=== PATIENT | female | born 1985 | race Caucasian/White ===

== ENCOUNTER 2024-02-24 22:31 | Inpatient (IN) | payer MEDICAID, OTHER ==
[~2024-02-24] VITALS: Ht 165.1 cm; Wt 68.0 kg
[2024-02-24 23:35] LABS: HEMOGLOBIN. 12.8 g/dL (12.0-16.0); MEAN CORPUSCULAR HEMOGLOBIN 33.6 pg (28.0-32.0); MEAN CORPUSCULAR HGB CONC 33.7 g/dL (31.0-37.0); MEAN CORPUSCULAR VOLUME 99.6 fL (81.0-99.0); MEAN PLATELET VOLUME 8.4 fl (7.4-10.4); PLATELET 66 x1000/uL (130-400); RED BLOOD CELL COUNT 3.82 mill/uL (4.2-5.4); RED CELL DISTRIBUTION WIDTH 17.2 % (11.6-14.6); WHITE BLOOD COUNT 5.4 x1000/uL (4.5-11.0)
[2024-02-24 23:37] LABS: CHLORIDE 102 mEq/L (98-107); POTASSIUM 3.5 mEq/L (3.5-5.1); SODIUM 138 mEq/L (136-145)
[2024-02-24 23:38] LABS: CARBON DIOXIDE 20 mEq/L (21-32)
[2024-02-24 23:39] LABS: CALCIUM 9.5 mg/dL (8.7-10.4)
[2024-02-24 23:43] LABS: CREATININE 0.7 mg/dL (0.6-1.0); GLUCOSE 146 mg/dL (70-105)
[2024-02-24 23:44] LABS: ETHANOL BLOOD 76 mg/dL (<10); UREA NITROGEN BLOOD 12 mg/dL (9-23)
[2024-02-24 23:45] LABS: ACETAMINOPHEN < 2 ug/mL (10-30); AMMONIA 62 uMol/L (<32)
[2024-02-24 23:47] LABS: HCG SCREEN NEGATIVE
[2024-02-25 00:06] LABS: DIFFERENTIAL COMMENT 1
[2024-02-25] MEDS: LEVETIRACETAM 1000MG PREMIX 100 ML IV ONE (00:20)
[2024-02-25] MEDS: LORAZEPAM 2MG/ML INJ IV ONE (00:21)
[2024-02-25] MEDS: FOLIC ACID 1 MG, THIAMINE HCL 100 MG, MVI, ADULT NO.1 10 ML in DEXTROSE 5% WATER 1,000 ML IV ONE (02:01)
[2024-02-25] MEDS ORDERED: ACETAMINOPHEN 325MG TABLET PO PRN (03:00)
[2024-02-25] MEDS ORDERED: MAGNESIUM/ALUMINUM HYDROXIDE/SIMETHICONE 30ML UDC PO PRN (03:00)
[2024-02-25] MEDS ORDERED: CLONIDINE 0.1MG TABLET PO PRN (03:00)
[2024-02-25] MEDS ORDERED: GUAIFENESIN 200MG/10ML SUGAR FREE UDC PO PRN (03:00)
[2024-02-25] MEDS ORDERED: IPRATROPIUM/ALBUTEROL 0.5-3(2.5)MG/3ML NEB HHN PRN (03:00)
[2024-02-25] MEDS ORDERED: ONDANSETRON HCL 4MG/2ML INJ IV PRN (03:00)
[2024-02-25] MEDS ORDERED: DOCUSATE SODIUM 100MG CAPSULE PO PRN (03:00)
[2024-02-25 05:42] LABS: PLATELET ESTIMATE DECREASED
[2024-02-25] MEDS: ACETAMINOPHEN 325MG TABLET PO PRN (05:42)
[2024-02-25 10:46] LABS: AMMONIA 72 uMol/L (<32)
[2024-02-25 11:18] LABS: CARBON DIOXIDE 25 mEq/L (21-32); CHLORIDE 101 mEq/L (98-107); POTASSIUM 3.1 mEq/L (3.5-5.1); SODIUM 133 mEq/L (136-145)
[2024-02-25 11:19] LABS: CALCIUM 8.6 mg/dL (8.7-10.4)
[2024-02-25 11:23] LABS: CREATININE 0.6 mg/dL (0.6-1.0)
[2024-02-25 11:24] LABS: GLUCOSE 75 mg/dL (70-105); UREA NITROGEN BLOOD 10 mg/dL (9-23)
[2024-02-25 11:26] LABS: ALANINE AMINOTRANSFERASE 60 IU/L (10-49); ALBUMIN 3.9 g/dL (3.2-4.8); ASPARTATE AMINOTRANSFERASE 175 IU/L (<34); BILIRUBIN TOTAL 5.5 mg/dL (0.1-1.0); PROTEIN TOTAL 7.4 g/dL (6.0-8.3)
[2024-02-25] MEDS ORDERED: LACTULOSE 20G/30ML UDC PO NR (13:45)
[2024-02-25] MEDS ORDERED: LACTULOSE 20G/30ML UDC PO SCH (14:00)
[2024-02-25] MEDS: LACTULOSE 20G/30ML UDC PO SCH (15:00)
[2024-02-25] MEDS: CHLORDIAZEPOXIDE 25MG CAPSULE PO SCH (15:01)
[2024-02-25] MEDS ORDERED: FOLIC ACID 1 MG, THIAMINE HCL 100 MG, MVI, ADULT NO.1 10 ML in DEXTROSE 5% WATER 1,000 ML IV ONE (16:00)
[2024-02-25 18:44] LABS: ALBUMIN 3.9 g/dL (3.2-4.8)
[2024-02-25 21:30] VITALS: BP 107/69; PULSE 92; RESP 20; TEMP 36.33624; TEMP 36.3624; O2SAT 96
[2024-02-26] VITALS: BP 120/85; PULSE 77; RESP 20; TEMP 37.2252; O2SAT 97
[2024-02-26 04:00] VITALS: BP 117/80; PULSE 84; RESP 20; TEMP 36.05844; O2SAT 98
[2024-02-26 06:23] LABS: CARBON DIOXIDE 23 mEq/L (21-32); CHLORIDE 102 mEq/L (98-107); POTASSIUM 3.2 mEq/L (3.5-5.1); SODIUM 134 mEq/L (136-145)
[2024-02-26 06:24] LABS: CALCIUM 9.1 mg/dL (8.7-10.4)
[2024-02-26 06:26] LABS: TRIGLYCERIDE 106 mg/dL (0-150)
[2024-02-26 06:29] LABS: CREATININE 0.6 mg/dL (0.6-1.0); GLUCOSE 96 mg/dL (70-105); T4 FREE 1.45 ng/dL (0.89-1.76); THYROID STIMULATING HORMONE 1.43 uIU/mL (0.55-4.78); UREA NITROGEN BLOOD 9 mg/dL (9-23)
[2024-02-26 06:30] LABS: ALBUMIN 3.9 g/dL (3.2-4.8); LDL CHOLESTEROL 88 mg/dL (5-100)
[2024-02-26 06:31] LABS: ALANINE AMINOTRANSFERASE 63 IU/L (10-49); ASPARTATE AMINOTRANSFERASE 183 IU/L (<34); BILIRUBIN DIRECT 4.7 mg/dL (<=3.0); CHOLESTEROL 183 mg/dL (<200); HDL CHOLESTEROL 64 mg/dL (>65); PROTEIN TOTAL 7.3 g/dL (6.0-8.3)
[2024-02-26 06:32] LABS: AMMONIA 69 uMol/L (<32)
[2024-02-26 06:36] LABS: BILIRUBIN TOTAL 7.5 mg/dL (0.1-1.0)
[2024-02-26 08:03] VITALS: BP 96/55; PULSE 82; RESP 19; TEMP 36.83628; O2SAT 97
[2024-02-26] MEDS: SODIUM CHLORIDE 0.9% 1,000 ML IV SCH (08:45)
[2024-02-26 09:17] LABS: HEMATOCRIT 36.3 % (36.0-48.0); HEMOGLOBIN 12.4 g/dL (12.0-16.0); MEAN CORPUSCULAR HEMOGLOBIN 34.1 pg (28.0-32.0); MEAN CORPUSCULAR HGB CONC 34.1 g/dL (31.0-37.0); MEAN CORPUSCULAR VOLUME 99.9 fL (81.0-99.0); RED BLOOD CELL COUNT 3.63 mill/uL (4.2-5.4); WHITE BLOOD COUNT 5.1 x1000/uL (4.5-11.0)
[2024-02-26] MEDS: FOLIC ACID 1MG TABLET PO SCH (09:24)
[2024-02-26] MEDS: POTASSIUM CHLORIDE 20MEQ TABLET SR PO SCH (09:24)
[2024-02-26] MEDS: THIAMINE HCL 100MG TABLET PO SCH (09:24)
[2024-02-26 11:42] VITALS: BP 112/68; PULSE 83; RESP 18; TEMP 37.28076; O2SAT 96
[2024-02-26] MEDS: LACTULOSE 20G/30ML UDC PO SCH ×2 (13:55→21:43)
[2024-02-26 14:02] LABS: *AMPHETAMINES SCREEN URINE NEGATIVE (NEGATIVE); *BARBITURATES SCREEN URINE NEGATIVE (NEGATIVE); *BENZODIAZEPINES SCREEN URINE PRESUMPTIVE POSITIVE (NEGATIVE); *COCAINE SCREEN URINE NEGATIVE (NEGATIVE)
[2024-02-26 14:03] LABS: CANNABINOID URINE SCREEN NEGATIVE (NEGATIVE); ECSTASY MDMA SCREEN URINE NEGATIVE (NEGATIVE); METHADONE URINE SCREEN NEGATIVE (NEGATIVE); OPIATES URINE SCREEN NEGATIVE (NEGATIVE); PHENCYCLIDINE URINE SCREEN NEGATIVE (NEGATIVE)
[2024-02-26 16:06] VITALS: BP 111/74; PULSE 78; RESP 20; TEMP 36.9474; O2SAT 96
[2024-02-26] MEDS ORDERED: DEXTROSE 50% WATER 50ML SYRINGE IV PRN (18:00)
[2024-02-26] MEDS: PANTOPRAZOLE SODIUM 40 MG/VIAL IV SCH (18:15)
[2024-02-26 20:00] VITALS: BP 104/70; PULSE 88; RESP 20; TEMP 37.2252; O2SAT 97
[2024-02-26] MEDS: CHLORDIAZEPOXIDE 25MG CAPSULE PO SCH (21:43)
[2024-02-26] MEDS: MAGNESIUM 2 G PREMIX 50 ML IV NR (21:46)
[2024-02-26 21:51] LABS: AMMONIA 77 uMol/L (<32)
[2024-02-27 00:19] VITALS: BP 113/72; PULSE 78; RESP 20; TEMP 37.61412; O2SAT 98
[2024-02-27 04:00] VITALS: BP 108/70; PULSE 74; RESP 18; TEMP 36.72516; O2SAT 98
[2024-02-27 05:52] LABS: HEMATOCRIT. 35.7 % (36.0-48.0); HEMOGLOBIN. 11.7 g/dL (12.0-16.0); MEAN CORPUSCULAR HEMOGLOBIN 33.5 pg (28.0-32.0); MEAN CORPUSCULAR HGB CONC 32.7 g/dL (31.0-37.0); MEAN CORPUSCULAR VOLUME 102.5 fL (81.0-99.0); MEAN PLATELET VOLUME 10.2 fl (7.4-10.4); PLATELET 52 x1000/uL (130-400); RED BLOOD CELL COUNT 3.48 mill/uL (4.2-5.4); RED CELL DISTRIBUTION WIDTH 16.8 % (11.6-14.6); WHITE BLOOD COUNT 4.6 x1000/uL (4.5-11.0)
[2024-02-27 06:01] LABS: CHLORIDE 107 mEq/L (98-107); POTASSIUM 3.6 mEq/L (3.5-5.1); SODIUM 136 mEq/L (136-145)
[2024-02-27 06:02] LABS: CALCIUM 8.6 mg/dL (8.7-10.4); CARBON DIOXIDE 22 mEq/L (21-32)
[2024-02-27 06:06] LABS: DIFFERENTIAL COMMENT 1
[2024-02-27 06:07] LABS: CREATININE 0.6 mg/dL (0.6-1.0)
[2024-02-27 06:08] LABS: GLUCOSE 101 mg/dL (70-105); UREA NITROGEN BLOOD 8 mg/dL (9-23)
[2024-02-27 08:00] VITALS: BP 105/56; PULSE 77; RESP 20; TEMP 36.61404; O2SAT 99
[2024-02-27 08:07] LABS: PLATELET 38 x1000/uL (130-400)
[2024-02-27] MEDS: SPIRONOLACTONE 25MG TABLET PO SCH (08:45)
[2024-02-27 12:00] VITALS: BP 106/74; PULSE 71; RESP 18; TEMP 37.05852; O2SAT 97
[2024-02-27 15:16] LABS: ANISOCYTOSIS 1+; PLATELET ESTIMATE DECREASED
[2024-02-27 16:00] VITALS: BP 110/79; PULSE 69; RESP 20; TEMP 36.61404; O2SAT 96
[2024-02-27] MEDS: POTASSIUM CHLORIDE 20MEQ/PACKET PO NR (18:14)
[2024-02-27 20:00] VITALS: BP 117/75; PULSE 92; RESP 16; TEMP 36.3918
[2024-02-27] MEDS: LEVETIRACETAM 500MG TABLET PO SCH (21:09)
[2024-02-27] MEDS ORDERED: IOHEXOL-300 100 ML BOTTLE ONE (23:38)
[2024-02-28] VITALS: BP 120/81; PULSE 89; RESP 19; TEMP 36.3918
[2024-02-28 04:00] VITALS: BP 99/49; PULSE 78; RESP 19; TEMP 36.3918; O2SAT 99
[2024-02-28 06:42] LABS: CHLORIDE 105 mEq/L (98-107); POTASSIUM 3.7 mEq/L (3.5-5.1); SODIUM 136 mEq/L (136-145)
[2024-02-28 06:43] LABS: CALCIUM 9.3 mg/dL (8.7-10.4); CARBON DIOXIDE 23 mEq/L (21-32); HEMATOCRIT. 35.1 % (36.0-48.0); HEMOGLOBIN. 11.5 g/dL (12.0-16.0); MEAN CORPUSCULAR HEMOGLOBIN 33.5 pg (28.0-32.0); MEAN CORPUSCULAR HGB CONC 32.8 g/dL (31.0-37.0); MEAN PLATELET VOLUME 9.9 fl (7.4-10.4); PLATELET 60 x1000/uL (130-400); RED BLOOD CELL COUNT 3.44 mill/uL (4.2-5.4); WHITE BLOOD COUNT 4.4 x1000/uL (4.5-11.0)
[2024-02-28 06:44] LABS: DIFFERENTIAL COMMENT 1
[2024-02-28 06:48] LABS: CREATININE 0.5 mg/dL (0.6-1.0); GLUCOSE 94 mg/dL (70-105); UREA NITROGEN BLOOD 6 mg/dL (9-23)
[2024-02-28 06:49] LABS: ALANINE AMINOTRANSFERASE 61 IU/L (10-49)
[2024-02-28 06:50] LABS: ALBUMIN 3.8 g/dL (3.2-4.8); ASPARTATE AMINOTRANSFERASE 201 IU/L (<34); BILIRUBIN TOTAL 8.1 mg/dL (0.1-1.0); PROTEIN TOTAL 7.2 g/dL (6.0-8.3)
[2024-02-28 07:25] LABS: AMMONIA 99 uMol/L (<32)
[2024-02-28 08:00] VITALS: BP 102/62; PULSE 98; RESP 18; TEMP 36.61404; O2SAT 96
[2024-02-28] MEDS ORDERED: LORAZEPAM 2MG/ML INJ IV PRN (08:30)
[2024-02-28 12:00] VITALS: BP 90/50; PULSE 73; RESP 18; TEMP 36.89184; O2SAT 95
[2024-02-28] MEDS ORDERED: SPIR25TA6 MT (12:43)
[2024-02-28] MEDS ORDERED: KEPP500 MT (12:43)
[2024-02-28] MEDS ORDERED: LACT10SO81 MT (12:43)
[2024-02-28] MEDS: CHLORDIAZEPOXIDE 10MG CAPSULE PO SCH (13:17)
[2024-02-28 13:28] LABS: BG BASE EXCESS -1.3 mmol/L (-2.0-3.0); BG CARBOXYHEMOGLOBIN 0.7 % (0.5-1.5); BG DEOXYHEMOGLOBIN 2.6 % (0.0-5.0); BG FRACTION INSPIRED OXYGEN 21; BG HCO3 ACT 21.9 mmol/L (21.0-28.0); BG METHEMOGLOBIN 0.3 % (0.5-1.5); BG OXYGEN SATURATION 97.4 % (94.0-98.0); BG OXYHEMOGLOBIN 96.4 % (94.0-98.0); BG PCO2 31.8 mmHg (32.0-45.0); BG PH 7.455 (7.350-7.450); BG PO2 88.4 mmHg (83.0-108.0); BG SAMPLE SITE RIGHT BRACHIAL; BG TOTAL HEMOGLOBIN 11.9 g/dL (12.0-16.0); BG VENT MODE ROOM AIR
[2024-02-28 16:00] VITALS: BP 106/67; PULSE 80; RESP 18; TEMP 36.83628; O2SAT 98
[2024-02-28 19:29] LABS: PLATELET ESTIMATE DECREASED
[2024-02-28 20:00] VITALS: BP 101/61; PULSE 85; RESP 18; TEMP 36.6696; O2SAT 97
[2024-02-28] MEDS: RIFAXIMIN 550 MG TABLET PO SCH (21:03)
[2024-02-29] VITALS: BP 93/53; PULSE 90; RESP 18; TEMP 37.16964; O2SAT 100
[2024-02-29 02:50] LABS: INR 1.1; PROTHROMBIN TIME 12.4 sec (9.6-11.0)
[2024-02-29 04:00] VITALS: BP 93/54; PULSE 79; RESP 18; TEMP 36.89184; O2SAT 92
[2024-02-29 04:01] VITALS: BP 93/54; PULSE 79; RESP 18; TEMP 36.89184; O2SAT 94
[2024-02-29 08:00] VITALS: BP 106/64; PULSE 84; RESP 18; TEMP 36.78072; O2SAT 99
[2024-02-29 09:18] VITALS: BP 106/64; PULSE 84; TEMP 97.3; O2SAT 98
== END 2024-02-29 14:24 | disposition home or self-care (01) | DRG 53 ==
LOC: ER 22:31 → 5WST 02-25 01:49 → 7WST 02-25 22:03
PROVIDERS: ADMIT Hospitalist; ATTEND Hospitalist
DX: R56.9 Unspecified convulsions (principal); G93.41 Metabolic encephalopathy; D69.6 Thrombocytopenia, unspecified; I85.10 Secondary esophageal varices without bleeding; E72.20 Disorder of urea cycle metabolism, unspecified; K76.6 Portal hypertension; K70.30 Alcoholic cirrhosis of liver without ascites; F10.229 Alcohol dependence with intoxication, unspecified; D53.9 Nutritional anemia, unspecified; G62.9 Polyneuropathy, unspecified; R91.1 Solitary pulmonary nodule; F10.239 Alcohol dependence with withdrawal, unspecified; K59.00 Constipation, unspecified; Z80.3 Family history of malignant neoplasm of breast; Z80.0 Family history of malignant neoplasm of digestive organs
CPT/HCPCS: 36415; 36600; 71045; 71260; 74177; 76700; 80048; 80053; 80061; 80076; 80305; 80307; 80320; 80329; 82040; 82140; 82375; 82550; 82805; 82962; 83735; 84439; 84443; 84703; 85025; 85027; 93005; 99285; J1953; J2060; J2470; J3411; J3475; J3490; J7030; J7070; Q9967; G0480